=== PATIENT | female | born 1990 | race Native Hawaiian/Other Pacific Islander ===

== ENCOUNTER 2017-05-27 14:22 | Emergency (ER) | payer OTHER ==
[2017-05-27 14:29] VITALS: BP 156/91; PULSE 97; RESP 18; TEMP 99; O2SAT 99
[2017-05-27 14:47] LABS: VENOUS BLOOD GAS BASE EXCESS 0.5 mmol/L (0.0-2.0); VENOUS BLOOD GAS PCO2 37 mmHg (40-60); VENOUS BLOOD GAS PO2 50 mm/Hg (30-55); VENOUS BLOOD PH 7.43 (7.32-7.43)
--- NOTE | 2017-05-27 14:53 | ED PDOC ---
HPI: General Adult Time Seen by Provider: 05/27/17 14:40 Chief Complaint (Nursing): Medical Clearance Chief Complaint (Provider): CO exposure History Per: Patient History/Exam Limitations: no limitations Onset/Duration Of Symptoms: Days (x1) Additional Complaint(s): 26 y/o female with no medical history presents for evaluation after CO exposure. Denies any symptoms at this time. 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 PMD: Provider TBD Past Medical History Reviewed: Historical Data, Nursing Documentation, Vital Signs Vital Signs: Last Vital Signs Temp 99.0 F 05/27/17 14:26 Pulse 97 H 05/27/17 14:26 Resp 18 05/27/17 14:26 BP 156/91 H 05/27/17 14:26 Pulse Ox 99 05/27/17 15:01 - Medical History PMH: No Chronic Diseases - Family History Family History: States: Unknown Family Hx - Allergies Allergies/Adverse Reactions: Allergies Allergy/AdvReac Type Severity Reaction Status Date / Time No Known Allergies Allergy Verified 05/27/17 14:26 Review of Systems ROS Statement: Except As Marked, All Systems Reviewed And Found Negative Constitutional: Negative for: Weakness Respiratory: Negative for: Shortness of Breath Gastrointestinal: Negative for: Nausea Neurological: Negative for: Headache, Dizziness Physical Exam - Reviewed Nursing Documentation Reviewed: Yes Vital Signs Reviewed: Yes - Physical Exam Appears: Positive for: Well, Non-toxic, No Acute Distress Head Exam: Positive for: ATRAUMATIC, NORMAL INSPECTION, NORMOCEPHALIC Skin: Positive for: Normal Color Eye Exam: Positive for: Normal appearance Neck: Positive for: Normal Cardiovascular/Chest: Positive for: Regular Rate, Rhythm Respiratory: Negative for: Respiratory Distress Extremity: Positive for: Normal ROM Neurologic/Psych: Positive for: Alert, Oriented (x3), Gait (steady), Other ( speech is clear). Negative for: Motor/Sensory Deficits - ECG O2 Sat by Pulse Oximetry: 99 (RA) Pulse Ox Interpretation: Normal - Progress ED Course And Treament: vbg CO 2.2 Patient given 100% nonrebreather for 1 hour. No symptoms noted. Medical Decision Making Medical Decision Making: Initial CO-oximetry used to screen patients. Patient offered VBG with ABG carboxyhemoglobin analysis to confirm. Patient receiving 100% oxygen re-breather, initiated in triage. Time: 14:42 --VBG Results reviewed: ABG Carboxyhemoglobin is 2.2. Scribe Attestation: Documented by Cassidy Rivera, acting as a scribe for Elsa Archer PA-C Provider Scribe Attestation: All medical record entries made by the Scribe were at my direction and personally dictated by me. I have reviewed the chart and agree that the record accurately reflects my personal performance of the history, physical exam, medical decision making, and the department course for this patient. I have also personally directed, reviewed, and agree with the discharge instructions and disposition. Disposition - Clinical Impression Clinical Impression: Carbon monoxide exposure - Patient ED Disposition Is Patient to be Admitted: No - Disposition Disposition: Routine/Home Disposition Time: 15:33 Condition: FAIR Instructions: Carbon Monoxide Poisoning (ED) Forms: [address] (Slovenian)
== END 2017-05-27 15:35 | disposition home or self-care (01) ==
LOC: H.ER 14:22
DX: T58.91XA Toxic effect of carbon monoxide from unspecified source, accidental (unintentional), initial encounter (principal)